=== PATIENT | female | born 1985 | race Caucasian/White ===

== ENCOUNTER 2024-09-20 08:24 | Emergency (ER) | payer OTHER, SELFPAY ==
--- NOTE | ~2024-09-20 | XR_ITS ---
EXAMINATION: XR CHEST CLINICAL INFORMATION: SOB COMPARISON: None available. TECHNIQUE: 2 views of the chest were obtained. FINDINGS: The cardiac, hilar, and mediastinal contours are normal. The lungs are clear bilaterally. There is no pneumothorax or pleural effusion. There is no focal osseous or soft tissue abnormality. XR/XR chest 2V IMPRESSION: Normal chest. Electronically signed by: Washington Haddad MD 09/20/2024 09:08 AM [facility]
[2024-09-20 08:34] VITALS: BP 163/75; PULSE 85; RESP 20; TEMP 36.4; O2SAT 96; BMI 38.6
[2024-09-20 09:13] LABS: MANUAL DIFF FLAG NO
[2024-09-20 09:15] LABS: Basophils Percent Auto 0.4 % (0-2); Eosinophils Absolute Auto 0.1 X10*3/uL (0.0-0.4); Eosinophils Percent Auto 1.2 % (0-4); Hematocrit 40.4 % (37.0-47.0); Hemoglobin 13.7 g/dl (12.0-16.0); Imm Gran Abs Auto 0.03 X10*3/uL (0.00-0.03); Imm Gran Pct Auto 0.3 % (0.0-0.4); Lymphocytes Absolute Auto 2.4 X10*3/uL (1.2-4.9); Lymphocytes Percent Auto 25.7 % (20-40); Mean Corpuscular HGB Conc 33.9 g/dl (31.0-35.0); Mean Corpuscular Hemoglobin 31.2 pg (27.0-33.0); Mean Platelet Volume 9.3 fL (9.4-12.3); Monocytes Absolute Auto 0.6 X10*3/uL (0.1-1.2); Monocytes Percent Auto 6.4 % (2-11); Platelet Count 338 X10*3/uL (160-400); Red Blood Count 4.39 X10*6/uL (4.20-5.50); Red Cell Distribution Width 13.2 % (11.0-16.0); White Blood Count 9.2 X10*3/uL (4.8-10.8)
[2024-09-20 09:30] LABS: Alanine Aminotransferase 41 U/L (0-31); Albumin Level 4.1 g/dL (3.5-5.0); Alkaline Phosphatase 80 U/L (39-117); Anion Gap 9 (12-20); Aspartate Amino Transferase 36 U/L (5-31); Bilirubin Total 0.3 mg/dL (0.0-1.0); Blood Urea Nitrogen 16 mg/dL (9-16); Calcium 8.9 mg/dL (8.4-10.2); Carbon Dioxide 24 mmol/L (22-29); Chloride 110 mmol/L (96-108); Creatinine Clr Calc Pharmacy 139.7; Estimated Glomerular Filt Rate > 60; Glucose Random 127 mg/dL (60-115); Potassium 4.2 mmol/L (3.3-5.1); Sodium 139 mmol/L (135-145)
[2024-09-20 09:34] LABS: B Type Natriuretic Peptide 59 pg/mL (<100)
[2024-09-20 10:03] LABS: Influenza A PCR NEGATIVE (Negative); Influenza B PCR NEGATIVE (Negative); Resp Syncy Virus RNA Qual PCR NEGATIVE (Negative); SARS COV2 PCR INHOUSE NEGATIVE (Negative)
--- NOTE | 2024-09-20 12:27 | ED.GENADULT ---
HPI - General Adult General Chief complaint: General Medical Stated complaint: Tooth infection, nausea, disoriented Time Seen by Provider: 09/20/24 12:25 Source: patient Mode of arrival: ambulatory Limitations: no limitations History of Present Illness ED Provider: ROLA LACEY PA-C HPI narrative: 38 year old female with no significant pmhx presents to the ED today for evaluation of dental pain x2-3 days. Reports removal of 3 wisdom teeth when she was 18 years old. Her left lower wisdom tooth was left intact as it had not erupted yet. She states that just recently the left lower widsom tooth erupted and has been causing her pain. She reports concern that it appears infected and has noticed some swelling to her left cheek. Reports intermittent nausea without vomiting. She is unsure if she feels nauseous secondary to the pain. Denies any drainage from the tooth. She has not been trialing an OTC analgesia for pain. Denies fever, chills, jaw pain, headache, dizziness, dysphagia, odynophagia, sore throat. She also endorses lower extremity swelling x a few weeks. Had one episode of shortness of breath a few days ago which has since resolved. Denies chest pain, calf tenderness, palpitations, orthopnea, cough, hemoptysis. denies hormone use. denies recent travel/long car rides. Denies injury or trauma. Related Data Previous Rx's ?Medication ?Instructions ?Recorded amoxicillin 875 mg-potassium 1 tab PO BID 7 days #14 tabs 09/20/24 clavulanate 125 mg tablet compression socks, large #2 ea 09/20/24 (LifestyleComfort Socks Large) tramadol 50 mg tablet 50 mg PO Q8H PRN pain (scale score 09/20/24 4-6) #7 tabs Allergies Allergy/AdvReac Type Severity Reaction Status Date / Time No Known Allergies Allergy Verified 09/20/24 08:36 Review of Systems Review of Systems: Constitutional: No fever, chills, fatigue, night sweats, weight changes ENT/Mouth: No ear pain, hearing loss, nasal congestion, sinus pain, rhinorrhea, sore throat, +dental pain Eyes: No eye pain, swelling, redness, vision changes, discharge Cardio: No chest pain, palpitations, MYRICK, orthopnea, peripheral edema Pulm: No SOB, cough, sputum, wheezing, dyspnea, hemoptysis GI: No nausea, vomiting, hematemesis, abdominal pain, diarrhea, constipation, hematochezia, melena : No irregular bleeding, dysuria, frequency, urgency, hesitancy, hematuria, flank pain, urinary flow changes, urinary incontinence or retention MSK: No back pain, neck pain, joint pain, myalgias, +b/l leg swelling Skin: No lesions, rashes Neuro: No weakness, numbness, paresthesias, LOC, dizziness, headache Psych: No anxiety/panic, depression, SI/HI, AH/VH All other systems reviewed and are negative. [facility] Past Medical History Attestation statement: The following information was validated with the patient. Source: old records reviewed and nursing notes reviewed Social History Social History Smoked in Last 30 Days: No Use of substances other than those prescribed or required for medical reasons: No Advance Directives: No Advance Directives Information Provided: Yes Patient : No Physical Exam ED Vital Signs: Vital Signs - 24 hr 09/20/24 08:34 09/20/24 13:33 09/20/24 13:36 Temperature 97.5 F 98.2 F 98.2 F Pulse Rate 85 75 75 Respiratory Rate 20 18 18 Blood Pressure 163/75 H 146/73 H 146/73 H Pulse Oximetry 96 96 96 Oxygen Delivery Method Room Air Room Air Room Air BMI result Body Mass Index 38.6 hypertenive, afebrile, not hypoxic General: Well appearing, in no acute distress. Skin: Warm, dry, intact. No rashes or lesions. Head: Normocephalic, atraumatic. EENT: Hearing is intact b/l. Conjunctiva clear. PERRLA. EOM intact. + No facial edema. Tongue and lips wnl + multiple dental caries and poor dentition. left lower molar with localized periapical swelling to the buccal ginginva. No pointing. No active bleeding/ discharge. TTP. No palpable fluctuance. Minimal edema to left buccal mucosa without palpable fluctuance. + Posterior oropharynx without erythema/edema. Uvula midline. Controlling secretions and speaking in complete sentences + No submandublar, submental or cervical LAD. No anterior neck swelling. Cardiac: Chest wall symmetric. RRR. no pitting edema. Lungs: Normal respiratory effort without accessory muscle use. CTA bilaterally. Ext: Upper and lower extremities atraumatic, without tenderness, deformity, swelling or erythema. Full ROM throughout. no noted edema to LEs. no calf tenderness b/l. Neuro: AOx3. Normal speech. Ambulating with steady gait. Psych: Appropriate mood and affect. Responds appropriately to questions. Course Course Course Narrative: CBC without leukocytosis or left shift. No anemia. H&H stable. Chemistry without acute electrolyte abnormality requiring intervention. No IDALMIS. Random glucose 127. Mildly elevated AST/ALT of unknown significance. Troponin undetectable. ACS unlikely. EKG showing normal sinus rhythm with a rate of 71 beats per minute, QT 372, QTC 404, no acute ischemic changes or ST elevations. Chest x-ray without infiltrate or consolidation. No effusion. She tested negative for COVID, flu, RSV. > into not appreciate any significant edema to either lower extremity. No pitting edema. No calf tenderness bilaterally or overlying cellulitic changes. I do not feel as though ultrasound of either lower extremity is warranted at this time. She does not endorse any pain in her lower extremities. She states that she had 1 episode of shortness of breath 2 days ago which has since resolved. PERC 0. PE unlikely. CTA chest not warranted at this time. > regarding dental pain, there is no notable fluid collection/ abscess that would require drainage at this time. will send augmentin to pharmacy for treatment. Advised Tylenol/Motrin for pain control. Tramadol sent for breakthrough pain. Medications Administered Discontinued Medications Generic Name Dose Route Start Last Admin Trade Name Freq PRN Reason Stop Dose Admin Amoxicillin/Clavulanate Potassium 875 mg 09/20/24 13:04 09/20/24 13:27 Amoxicillin/Potassium Clav 875 Mg Tablet PO 09/20/24 13:05 875 mg ONCE ONE Administration Ketorolac Tromethamine 30 mg 09/20/24 13:04 09/20/24 13:27 Ketorolac Tromethamine 30 Mg/Ml Vial IM 09/20/24 13:05 30 mg ONCE ONE Administration Medical Decision Making Medical Decision Making [facility] Narrative: 38 year old female with no significant pmhx presents to the ED today for evaluation of dental pain x2-3 days. Hypertensive, vitals otherwise wnl. afebrile, not hypoxic. She is nontoxic appearing and in NAD, lying comfortably on exam bed watching a movie on her laptop. On exam, No facial edema. Tongue and lips wnl, multiple dental caries and poor dentition. left lower molar with localized periapical swelling to the buccal ginginva. No pointing. No active bleeding/ discharge. TTP. No palpable fluctuance. Minimal edema to left buccal mucosa without palpable fluctuance, posterior oropharynx without erythema/edema. Uvula midline. Controlling secretions and speaking in complete sentences, no submandublar, submental or cervical LAD. No anterior neck swelling. On exam of LEs, no noted edema, no calf tenderness, 2+pt/dp pulse intact. Differential includes dental/ periapical abscess/infection, apthous stomatitis. Unlikely mono, herpes, sialadenitis, sialolithiasis, [employer], retropharyngeal abscess, deep neck infection, osteomyelitis, facial cellulitis/ abscess, lymphoma. Concern for dependent edema, CHF. Unlikely DVT, fracture. Plan for labs, viral serology, EKG, chest x-ray, pain control and re-evaluation. Differential Diagnosis Differential Diagnoses: The differential diagnosis associated with the presentation includes as above. Admission/Observation Not indicated. Lab Data MDM Lab Attestation statement: I reviewed the patient's lab results. As above 09/20/24 09:09 09/20/24 09:09 Labs: Lab Results 09/20/24 Range/Units 09:09 WBC 9.2 (4.8-10.8) X10*3/uL RBC 4.39 (4.20-5.50) X10*6/uL Hgb 13.7 (12.0-16.0) g/dl Hct 40.4 (37.0-47.0) % MCV 92.0 (80.0-98.0) fL MCH 31.2 (27.0-33.0) pg MCHC 33.9 (31.0-35.0) g/dl RDW 13.2 (11.0-16.0) % Plt Count 338 (160-400) X10*3/uL MPV 9.3 L (9.4-12.3) fL Immature Gran % (Auto) 0.3 (0.0-0.4) % Neut % (Auto) 66.0 (45-73) % Lymph % (Auto) 25.7 (20-40) % Izard % (Auto) 6.4 (2-11) % Eos % (Auto) 1.2 (0-4) % Baso % (Auto) 0.4 (0-2) % Lymph # (Auto) 2.4 (1.2-4.9) X10*3/uL Izard # (Auto) 0.6 (0.1-1.2) X10*3/uL Eos # (Auto) 0.1 (0.0-0.4) X10*3/uL Baso # (Auto) 0.0 (0.0-0.2) X10*3/uL Abs Immat Gran (auto) 0.03 (0.00-0.03) X10*3/uL Absolute Neuts (auto) 6.0 (2.0-8.3) x10*3/uL Absolute Nucleated RBC 0.000 (0.0-0.012) X10*3/uL Nucleated RBC % (auto) 0.0 (0.0-0.2) /100WBC Sodium 139 (135-145) mmol/L Potassium 4.2 (3.3-5.1) mmol/L Chloride 110 H (96-108) mmol/L Carbon Dioxide 24 (22-29) mmol/L Anion Gap 9 L (12-20) BUN 16 (9-16) mg/dL Creatinine 0.84 (0.5-1.4) mg/dL Estim Creat Clear Calc 139.7 Estimated GFR > 60 Random Glucose 127 H (60-115) mg/dL Calcium 8.9 (8.4-10.2) mg/dL Total Bilirubin 0.3 (0.0-1.0) mg/dL AST 36 H (5-31) U/L ALT 41 H (0-31) U/L Alkaline Phosphatase 80 (39-117) U/L Troponin I High Sens < 2.7 (<3.5-17.0) ng/L B-Natriuretic Peptide 59 (<100) pg/mL Total Protein 7.0 (6.5-8.0) g/dL Albumin 4.1 (3.5-5.0) g/dL Influenza Type A (PCR) NEGATIVE (Negative) Influenza Type B (PCR) NEGATIVE (Negative) RSV RNA Qual (PCR) NEGATIVE (Negative) SARS-CoV-2 RNA (RT-PCR) NEGATIVE (Negative) Independent Interpretation I performed an independent interpretation of an: EKG and Plain X-Ray Interpretation: Chest x-ray without focal consolidation or infiltrate EKG showing NSR w/ rate of 71 bpm, no acute ischemic changes or st elevations Radiology Impression Discussion of test interpretation with radiology: I have reviewed the radiologist's reading. Radiologist Impression: EXAMINATION: XR CHEST CLINICAL INFORMATION: SOB COMPARISON: None available. TECHNIQUE: 2 views of the chest were obtained. FINDINGS: The cardiac, hilar, and mediastinal contours are normal. The lungs are clear bilaterally. There is no pneumothorax or pleural effusion. There is no focal osseous or soft tissue abnormality. XR/XR chest 2V IMPRESSION: Normal chest. Electronically signed by: Washington Haddad MD 09/20/2024 09:08 AM [facility] Tests considered The following testing was considered but not selected: I considered obtaining a CT of the soft tissues neck however these is no evidence of ludwigs angina or concern for deep tissue infection. Not warranted at this time. Prescription Management I considered prescription management with: Pain Medication (tramadol) and Antibiotic (augmentin) Social Determinants Patient?s care significantly limited by Social Determinants of Health including: Other Social Determinant of Health Critical Care Time Critical Care Time Critical Care Time: No Discharge Plan Discharge Clinical Impression: Dental infection, Bilateral leg edema Patient Disposition: Home, Self-Care Instructions: Leg Edema (ED), Root Canal (DC) Additional Instructions: You were evaluated in ED today for dental pain. You have a dental infection. Augmentin is an antibiotic that has been sent to your pharmacy for treatment. Take this as prescribed and do not skip any doses. Take this to completion or the infection may persist or worsen. On Augmentin, softer bowel movements are to be expected. Call your provider if you move your bowels more than 4 times a day, your bowel movements are almost all liquid, or you get a rash.? Take tylenol/ motrin at home as needed for pain. Tramadol is a pain medication that has been sent to your pharmacy for you to take for break-through pain. Use this with caution. YOU NEED TO FOLLOW UP WITH A DENTIST. You have been provided with a referral to [facility]. They are currently taking new clients. Call them to make an appointment. They will not call you. Return with new or worsening symptoms. In the case of an emergency call 911. [facility]: [phone] [id number] [facility] [id number] Regarding your leg swelling, I recommend wearing compression stockings and elevating your legs whenever possible. I recommend a diet low in sodium (less than 2 grams per day). Monitor your weight daily. Follow up with your PCP this week. Return to the ED with new or worsening symptoms. In the case of an emergency call 911. Prescriptions: New amoxicillin-pot clavulanate 875-125 mg tablet 1 tab PO BID 7 Days Qty: 14 0RF tramadol 50 mg tablet 50 mg PO Q8H PRN (Reason: pain (scale score 4-6)) Qty: 7 0RF (DME) LifestyleComfort Socks Large Misc See Rx Instructions .Route Qty: 2 0RF Rx Instructions: As directed Interventions: ED Discharge Assessment Last Done: 09/20/24 13:36 Discharge Date/Time: 09/20/24 13:36 Print Language: Kiswahili
--- NOTE | 2024-09-20 12:28 | ECG_ITS ---
Test Reason : sob Blood Pressure : */* mmHG Vent. Rate : 71 BPM Atrial Rate : 71 BPM P-R Int : 162 ms QRS Dur : 76 ms QT Int : 372 ms P-R-T Axes : 14 6 10 degrees QTcB Int : 404 ms Normal sinus rhythm Normal ECG No previous ECGs available Referred By: Irma Galan Electronically Signed By: Ricardo Tanner
[2024-09-20 12:55] LABS: Troponin-I High Sensitivity < 2.7 ng/L (<3.5-17.0)
[2024-09-20] MEDS: Ketorolac Tromethamine 30 MG/ML VIAL IM (13:27)
[2024-09-20] MEDS: Amoxicillin/Potassium Clav 875 MG TABLET PO (13:27)
[2024-09-20 13:33] VITALS: BP 146/73; PULSE 75; RESP 18; TEMP 36.8; O2SAT 96
[2024-09-20 13:36] VITALS: BP 146/73; PULSE 75; RESP 18; TEMP 36.8; O2SAT 96
== END 2024-09-20 13:36 | disposition home or self-care (01) ==
PROVIDERS: Physician Assistant Medical; Emergency Provider Emergency Medicine
DX: K08.89 Other specified disorders of teeth and supporting structures (principal); K02.9 Dental caries, unspecified; R60.0 Localized edema; R06.02 Shortness of breath; Z03.818 Encounter for observation for suspected exposure to other biological agents ruled out
CPT/HCPCS: 0241U; 71046; 80053; 83880; 84484; 85025; 93005; 96372; 99284; 99285; J1885

== ENCOUNTER → 2024-09-20 12:28 | Outpatient (BNV) | payer OTHER, SELFPAY | PROVIDERS: Emergency Provider Emergency Medicine; Visit Provider Internal Medicine Cardiovascular Disease | DX: R06.02 Shortness of breath (principal) | CPT/HCPCS: 93010 ==